=== PATIENT | female | born 1975 | race Caucasian/White ===

== ENCOUNTER 2022-08-18 01:13 | Emergency (ER) | payer MEDICAID, OTHER ==
[~2022-08-18] VITALS: Ht 167.6 cm; Wt 70.3 kg
--- NOTE | 2022-08-18 01:30 | NUR ---
PRESENTED TO THE ER FOR C/O BILATERAL FLANK PAIN RADIATING TO THE GROIN MORE ON THE R SIDE FOR 3 DAYS. PT DENIED ANY HEMATURIA, URINARY FREQUENCY, URGENCY OR DYAURIA. LMP: ABOUT THREE WEEKS AGO. AFEBRILE. AMBULATORY WITH STEADY GAITS TO THE BATHROOM. URINE SAMPLE OBTAINED. TO ER BED 3. WILL CONT TO MONITOR
--- NOTE | 2022-08-18 01:34 | NUR ---
BLOOD COLLECTED AND SENT TO LAB
--- NOTE | 2022-08-18 01:34 | NUR ---
URINE COLLECTED AND SENT TO [facility]
[2022-08-18 02:04] LABS: BASOPHILS # (AUTO) 0.1 K/uL (0.0-0.2); BASOPHILS % (AUTO) 0.8 % (0.0-2.0); HEMATOCRIT 34 % (33-45); HEMOGLOBIN 10.7 g/dL (11.5-14.8); LYMPHOCYTES # (AUTO) 1.8 K/uL (0.8-4.8); LYMPHOCYTES % (AUTO) 24.6 % (20.0-44.0); MEAN CORPUSCULAR HGB CONC 32 g/dl (31.0-36.0); MEAN CORPUSCULAR VOLUME 79 fL (82-100); MONOCYTES # (AUTO) 0.7 K/uL (0.1-1.30); MONOCYTES % (AUTO) 9.9 % (2.0-12.0); NEUTROPHILS # (AUTO) 4.6 K/uL (1.8-8.9); NEUTROPHILS % (AUTO) 60.7 % (43.0-81.0); PLATELET COUNT (AUTO) 194 K/uL (150-450); RED BLOOD CELL COUNT(AUTO) 4.31 MIL/uL (4.0-5.2); WHITE BLOOD COUNT (AUTO) 7.5 K/uL (4.3-11.0)
[2022-08-18 02:07] LABS: BILIRUBIN,URINE NEGATIVE (NEGATIVE); COLOR,URINE YELLOW (YELLOW); LEUKOCYTE ESTERASE ,URINE NEGATIVE (NEGATIVE); NITRITE, URINE NEGATIVE (NEGATIVE); PROTEIN,URINE NEGATIVE (NEGATIVE); UGLUCOSE NEGATIVE (NEGATIVE); UROBILINOGEN,URINE 0.2 EU/dL (0.2)
[2022-08-18 02:14] LABS: CALCIUM, SERUM 8.7 mg/dL (8.5-10.1); CREATININE 0.9 mg/dL (0.6-1.3); POTASSIUM 3.7 mmol/L (3.5-5.1)
[2022-08-18] MEDS ORDERED: KETOROLAC TROMETHAMINE 15 MG/ML VIAL ONE (02:27)
[2022-08-18] MEDS ORDERED: KETOROLAC TROMETHAMINE INJ 60 MG/2 ML VIAL IM ONE (02:30)
[2022-08-18] MEDS ORDERED: LIDO30AD10 TP (02:32)
[2022-08-18] MEDS ORDERED: NAPR-1164 PO (02:32)
--- NOTE | 2022-08-18 02:36 | NUR ---
IV removed. Catheter intact and site benign. Pressure and 4x4 applied to site. No bleeding noted.
[2022-08-18 02:37] VITALS: BP 120/80
--- NOTE | 2022-08-18 02:37 | NUR ---
Patient discharged to home in stable condition. Written and verbal after care instructions given. Patient verbalizes understanding of instruction.
== END 2022-08-18 02:38 | disposition home or self-care (01) ==
LOC: ER 01:16
DX: M54.50 Low back pain, unspecified (principal); Z87.440 Personal history of urinary (tract) infections; Z79.899 Other long term (current) drug therapy
CPT/HCPCS: 99283; 96372; 85025; 80048; 84703; 81003; 36415; J1885